=== PATIENT | female | born 1950 | race African-American/Black ===

== ENCOUNTER 2019-01-10 14:22 | Day surgery (SDC) | payer OTHER ==
[2018-12-29 14:03] VITALS: BMI 28.0
--- NOTE | 2019-01-10 14:19 | HP ---
CHIEF COMPLAINT: Right shoulder pain PCP: Dr. Tan Little HISTORY OF PRESENT ILLNESS: 68 year-old female with a PMH significant for HTN, bilateral knee arthritis, and right shoulder rotator cuff tear and biceps tendonitis s/p right shoulder arthroscopy, right rotator cuff repair, subacromial decompression, and biceps tendonesis today with Dr. Leighton Gil. Recent Travel: No PAST MEDICAL HISTORY: Hypertension Bilateral knee arthritis PAST SURGICAL HISTORY: None reported Social History: , lives in apartment Smoking: never Alcohol: no Drugs: no Family History: mother with cancer, father with cancer Allergies No Known Allergies Allergy (Verified 01/10/19 08:27) HOME MEDICATIONS: Home Medications Medication Instructions Recorded Amlodipine Besylate [Norvasc -] 5 mg PO DAILY 12/29/18 Enalapril Maleate [Vasotec -] 10 mg PO DAILY 12/29/18 Oxycodone HCl/Acetaminophen 1 each PO BID 12/29/18 [Percocet 10-325 mg Tablet] REVIEW OF SYSTEMS (post-operative) CONSTITUTIONAL: +feels a little woozy Absent: fever, chills, diaphoresis, generalized weakness, malaise, loss of appetite, weight change HEENT: Absent: rhinorrhea, nasal congestion, throat pain, throat swelling, difficulty swallowing, mouth swelling, ear pain, eye pain, visual changes CARDIOVASCULAR: Absent: chest pain, syncope, palpitations, irregular heart rate, lightheadedness , peripheral edema RESPIRATORY: Absent: cough, shortness of breath, dyspnea with exertion, orthopnea, wheezing, stridor, hemoptysis GASTROINTESTINAL: Absent: abdominal pain, abdominal distension, nausea, vomiting, diarrhea, constipation, melena, hematochezia GENITOURINARY: Absent: dysuria, frequency, urgency, hesitancy, hematuria, flank pain, genital pain MUSCULOSKELETAL: +right hand numbness Absent: myalgia, arthralgia, joint swelling, back pain, neck pain SKIN: Absent: rash, itching, pallor HEMATOLOGIC/IMMUNOLOGIC: Absent: easy bleeding, easy bruising, lymphadenopathy, frequent infections ENDOCRINE: Absent: unexplained weight gain, unexplained weight loss, heat intolerance, cold intolerance NEUROLOGIC: Absent: headache, focal weakness or paresthesias, dizziness, unsteady gait, seizure, mental status changes, bladder or bowel incontinence PSYCHIATRIC: Absent: anxiety, depression, suicidal or homicidal ideation, hallucinations. PHYSICAL EXAMINATION Vital Signs - 24 hr 07/15/19 07/15/19 08:28 08:43 Temperature 97.6 F Pulse Rate 58 L Respiratory 16 Rate Blood Pressure 140/95 O2 Sat by Pulse 98 Oximetry (%) GENERAL: Awake, alert, and fully oriented, in no acute distress. HEAD: Normal with no signs of trauma. LUNGS: Breath sounds equal, clear to auscultation bilaterally. No wheezes, and no crackles. No accessory muscle use. HEART: Regular rate and rhythm, S1 and S2 ABDOMEN: Soft, nontender, not distended, normoactive bowel sounds MUSCULOSKELETAL: Normal range of motion at all joints. No bony deformities or tenderness. No CVA tenderness. UPPER EXTREMITIES: 2+ pulses, warm, well-perfused. No cyanosis. No clubbing. No peripheral edema. RIGHT ARM: in immobilizer; surgical dressing on right shoulder c/d/i, surgical wound not visualized; 2+ radial pulse, fingers are warm-well perfused, 0/5 motor /sensory right hand LOWER EXTREMITIES: 2+ pulses, warm, well-perfused. No calf tenderness. No peripheral edema. NEUROLOGICAL: Cranial nerves II-XII intact. Normal speech. ASSESSMENT/PLAN 68 year-old female with a PMH significant for HTN, now s/p right shoulder arthroscopy, right rotator cuff repair, subacromial decompression, and biceps tendonesis. Right shoulder arthroscopy, right rotator cuff repair, subacromial decompression , and biceps tendonesis --POD #0 --perioperative antibiotics per surgery --pain management per surgery: oxycodone PRN --Zofran PRN for nausea --incentive spirometry Hypertension --normotensive post-op, hold anti-hypertensives tonight --start home amlodipine and enalapril in am with hold parameters FEN Fluids: PO intake adequate Electrolytes: replete as indicated Nutrition: regular diet DVT prophylaxis: OOB, ambulation, SCDs; start ASA 325mg daily tomorrow Dispo: 23 hour stay. Full code. Visit type - Emergency Visit Emergency Visit: No - New Patient This patient is new to me today: Yes Date on this admission: 01/10/19 - Critical Care Critical Care patient: No
[~2019-01-10 14:22] MED LIST: BUPIVACAINE HCL/PF 0.25% (2.5MG/ML) 10 ML VIAL IJ ONE; BUPIVACAINE HCL/PF 2.5 MG/ML - 30 ML VIAL IJ ONE; DEXAMETHASONE SOD PHOSPHATE 4 MG/1 ML VIAL ONE; KETOROLAC TROMETHAMINE 30 MG/1 ML VIAL ONE; MIDAZOLAM HCL 2 MG/2 ML SINGLE DOSE VIAL ONE; ONDANSETRON 4 MG/2 ML VIAL IVPUSH PRN; ONDANSETRON 4 MG/2 ML VIAL ONE; PROMETHAZINE HCL 25 MG/1 ML VIAL IVPUSH PRN; PROPOFOL 20 ML ONE; ROPIVACAINE HCL 0.5% 30ML VIAL ONE; ceFAZolin SODIUM 1 GM VIAL ONE; oxyCODONE HCL 5 MG TABLET PO PRN
--- NOTE | 2019-01-10 14:54 | OPR ---
Date of Procedure: 01/10/2019 Procedure: Right Shoulder- 1. Diagnostic arthroscopy. 2. Arthroscopic limited debridement of glenohumeral joint (03544). 3. Arthroscopic subacromial decompression (65676). 4. Arthroscopic rotator cuff repair: Subscapularis, Supraspinatus, Infraspinatus (13594). 5. Arthroscopic-assisted biceps tenodesis-subpectoral (24385). Preoperative Diagnoses: 1. Rotator cuff tear. 2. Biceps tendon degeneration. 3. Glenohumeral synovitis. 4. Glenohumeral arthritis. Postoperative Diagnoses: 1. Rotator cuff tear-Subscapularis, Supraspinatus, Infraspinatus. 2. Biceps tendon degeneration and tear. 3. Labral degeneration and fraying; SLAP tear. 4. Chondromalacia of the glenohumeral joint. 5. Glenohumeral synovitis. 6. Subacromial bursitis and adhesions. Surgeon: Leighton Gil DO Assistants: Ayden Lopez DO Anesthesia: General anesthesia, IV regional with interscalene nerve block Estimated Blood Loss: Minimal Drains: None Total IV Fluids: Per anesthesia record Specimens: None Implants: Nolen [employer] Nephew- (2) 5.5mm Healicoil [place] (x2), double loaded with UltraTape and Suture; (1) 4.5mm FootPrint [place], (1) 5.5mm FootPrint [place], (1 ) 1.9 SutureFix [place], double loaded with suture Complications: None Disposition: PACU Condition: Hemodynamically stable Indications: Avery Moreno presented to us with chronic right shoulder pain that failed conservative measures, including oral anti-inflammatory medications and 3 months of formal physical therapy. Her symptoms, signs, and imaging were consistent with the above noted diagnoses. She ultimately elected to proceed with surgical intervention after discussion of the risks, benefits, alternatives. We discussed risks including but not limited to, bleeding, pain, infection, scarring, damage to neurovascular structures, blood clots, pulmonary embolus, need for additional surgery, incomplete relief of pain, and incomplete return of function. She expressed understanding and wished to proceed. She underwent preoperative medical evaluation clearance and optimization prior to surgery. Procedure Details: She was identified in the preoperative area. The shoulder was marked as the operative site and consent was completed and confirmed. A member of the anesthesia department performed an interscalene block in the preoperative holding area. She was later transferred to the operating room and placed in supine position the operating room. General anesthesia was induced without difficulty. She was repositioned into beach chair with all bony prominences appropriately padded. The neck was in neutral alignment. A surgical time-out was performed identifying the correct patient, procedure, and site. Antibiotics were given within 1 hour prior to surgical incision. The upper extremity was prepped and draped in standard sterile fashion. Examination under anesthesia: Passive range of motion of the right shoulder showed forward elevation of 160, abduction 90, external rotation at side 60, SABER 90, SABIR 40. This was compared to her contralateral shoulder which shows forward elevation of 170, abduction 100 external rotation at side 60, SABER 90, SABIR 40, and internal rotation to her mid thoracic spine. Diagnostic arthroscopy: We began the procedure with the standard posterolateral portal, entered the glenohumeral joint, and an anterior portal was made within the rotator cuff interval under direct visualization with the assistance of a spinal needle. A probe was used to assist with diagnostic arthroscopy and we visualized from both posteriorly and anteriorly. Evaluation of the glenohumeral joint showed mild to moderate synovitis anteriorly and superiorly. The superior labrum had a degenerative tear that was debrided back to a stable base. The anterior labrum was probed and found to be intact. The posterior labrum was probed and found to be intact. There were no loose bodies in the inferior pouch. There was no HAGL lesion. The biceps tendon showed hyperemia. The rotator cuff interval was normal. The axillary recess was empty. The subscapularis was torn from the lesser tuberosity and there was a positive comma sign. The supraspinatus and infraspinatus were found to be torn from the greater tuberosity. The articular surface of the teres minor tendons were intact. The glenoid and humeral head degeneration with areas of grade III and IV chondromalacia. Evaluation of the subacromial space showed moderate bursitis and adhesions. There was a small acromial spur anteriorly. There was fraying of the CA ligament. The AC joint was intact. The rotator cuff was found to be torn from the tuberosity. Arthroscopic limited debridement of the glenohumeral joint: We used a combination of the arthroscopic motorized shaver and radiofrequency device to perform a limited debridement inside the glenohumeral joint. The hyperemia, erythema, and synovitis of the joint and joint capsule was focally debrided. Synovitic fronds were thermally ablated. Chondral degeneration was debrided to a stable edge. Labral fraying and degeneration was also resected and debrided to a stable edge. A biceps tenotomy was performed and the biceps tendon was allowed to retract into the groove for later tenodesis. Arthroscopic-assisted biceps tenodesis: We made a 2 cm incision along Patricia's lines in the axillary fold. Sharp dissection was carried out down to the level of the pectoralis major. The plane between the pectoralis major and the short head of biceps tendon was developed bluntly down to the level of the humeral bone, where we identified the long head of biceps tendon and delivered it retrograde out of the wound. The underlying soft tissue was resected and the bone was frayed with a 1/4-inch osteotome. We then selected a 1.9 SutureFix anchor and placed the anchor high within the bicipital groove underneath the pectoralis major tendon. The sutures were then passed just proximal to the musculotendinous junction of the long head of biceps in an alternating simple versus lasso loop configuration. Tying these sutures down tenodesed the tendon onto the underlying frayed humeral bone. We used an arthroscopic knot pusher to get excellent knot fixation, and then arthroscopic rotary shear cutter to cut the remaining length of the suture. The remaining length of the biceps tendon was resected. We confirmed our arthroscopic knots and position of the biceps tendon underneath the pectoralis major with the arthroscope. We thoroughly irrigated the wound. Arthroscopic subacromial decompression: The subacromial space was entered from posteriorly. Separate anterior-lateral portal and posterior-lateral portal were made for additional instrumentation and visualization. We then visualized the rotator cuff pattern as noted above, and performed our subacromial decompression in a systematic fashion from anterior to posterior and from lateral to medial, removing the bursal tissue carefully. This was done with a radiofrequency device and motorized shaver. The undersurface of the acromion was skeletonized and gently debrided to a flat smooth undersurface. There was a small anterior-inferior spur that was resected with a motorized bur. Arthroscopic rotator cuff repair: We decided to begin our rotator cuff repair with the subscapularis. We debrided the remnant tissue over the bicipital groove and superior portion of the lesser tuberosity. We debrided it with a motorized bur to slightly decorticate it. We used ultratape and a single 4.5 mm Nolen and Nephew PEEK helicoil anchor for repair of the superior subscapularis. The sutures were passed through the superolateral tendon edge in a horizontal mattress fashion. This achieved good fixation of the superior subscapularis back into the lesser tuberosity insertion. We turned our attention to rotator cuff repair of the supraspinatus and infraspinatus. We debrided the remnant tissue over the bicipital groove and greater tuberosity and debrided frayed tissue from the rotator cuff tendon edge. We debrided the greater tuberosity with a motorized bur to slightly decorticate it, preparing a bony bed to receive the rotator cuff tendon. Evaluation of the tear showed an reverse L shaped tear. We used two 5.5 mm Nolen and Nephew PEEK helicoil anchors for repair of the rotator cuff and they were placed just lateral to the articular margin, one anteriorly and one posteriorly. These had good fixation within the bone. The sutures from each anchor were then passed through the supraspinatus and infraspinatus with the tissue-piercing Firstpass. Sutures were then shuttled appropriately through the cannulas and arthroscopic knots were tied with a knot pusher. Two ultratape sutures and two standard sutures from each medial anchor knots were passed through the lateral row Footprint PEEK anchor and this was impacted into the lateral aspect of the greater tuberosity, one anteriorly and one posteriorly. This achieved good fixation of the rotator cuff into the greater tuberosity with good compression of the rotator cuff into the the tuberosity footprint from medial to lateral. We promoted some localized bone bleeding and marrow elements with an awl in the lateral aspect of the greater tuberosity. We thoroughly irrigated the subacromial space and we removed the arthroscopic equipment. Wound closure: The arthroscopic portal incisions were closed with 3-0 Monocryl subcuticular stitch with Steri strips. The axillary incision was thoroughly irrigated and closed with 2-0 Vicryl, 3-0 Monocryl subcuticular stitch, and Dermabond skin glue. The shoulder was sterilely dressed and the arm was placed in a shoulder immobilizer. Post-operative Details: I spoke with the family regarding the operation after surgery. Postoperative rehabilitation: Arthroscopic rotator cuff repair protocol. The patient will remain in a shoulder immobilizer for 6 weeks. Early passive range of motion okay with no limits and advance as tolerated; no pendulums. No strengthening for at least 5 months. Attestation for teaching assistant: Dr. Ayden Lopez DO acted as the teaching assistant. There was no qualified resident or physician bilingual office assistant available to do so.
[2019-01-11 06:13] VITALS: BP 141/73; PULSE 61; TEMP 98
--- NOTE | 2019-01-11 07:30 | PN ---
Progress Note (short form) - Note Progress Note: ORTHOPEDIC SURGERY PROGRESS NOTE Department of Orthopedic Surgery SUBJECTIVE No acute events overnight. No complaints currently. Denies chest pain, shortness of breath, or calf pain. No nausea or vomiting. Tolerating oral intake. Pain controlled. PHYSICAL EXAMINATION General: Alert, oriented, cooperative and no distress. Upper Extremity: Dressing/shoulder immobilizer intact; No drainage. Muscle mass equal and symmetric to contralateral side. No atrophy noted. No significant swelling. No tenderness to palpation. M/R/U/MSK/AX motor intact; SILT distally; 2+ radial pulses; Cap refill brisk. DVT Exam: No evidence of DVT seen on physical exam; No cords or calf tenderness ; No significant calf/ankle edema. Intake & Output 01/09/19 01/10/19 01/11/19 23:59 23:59 23:59 Intake Total 1450 Output Total 400 Balance 1050 Intake: IV 1050 Oral 400 Output: Urine 400 Void 400 Other: Voiding Method Toilet Toilet # Unmeasured Voids Void 2 Weight 179 lb Height 5 ft 7 in Body Mass Index (BMI) 28.0 Weight Measurement Method Standing Scale Active Medications Generic Name Dose Route Start Last Admin Trade Name Freq PRN Reason Stop Dose Admin Amlodipine Besylate 5 mg 01/11/19 10:00 Norvasc - PO DAILY [facility] Aspirin 325 mg 01/11/19 10:00 Ecotrin - PO DAILY [facility] Enalapril Maleate 10 mg 01/11/19 10:00 Vasotec - PO DAILY [facility] Fentanyl 50 mcg 01/10/19 14:19 Sublimaze Injection - IVPUSH [id number] PRN PAIN-PACU ORDER X 4 DOSES ONLY Ondansetron HCl 4 mg 01/10/19 14:19 Zofran Injection IVPUSH Q6H PRN NAUSEA AND/OR VOMITING Oxycodone HCl 5 mg 01/10/19 14:19 Roxicodone - PO Q4H PRN PAIN LEVEL 1-5 Oxycodone HCl 10 mg 01/10/19 14:19 Roxicodone - PO Q4H PRN PAIN LEVEL 6-10 Promethazine HCl 12.5 mg 01/10/19 14:19 Phenergan Injection - IVPUSH Q6H PRN NAUSEA-FOR RESCUE AFTER 15 MIN Vital Signs (last) Temp Pulse Resp BP Pulse Ox 98.0 F 61 19 141/73 98 01/11/19 06:00 01/11/19 06:00 01/11/19 06:00 01/11/19 06:00 01/11/19 06:00 ASSESSMENT AND PLAN Avery Moreno is a 68 year old female status post right shoulder arthroscopy rotator cuff repair and biceps tenodesis. POD#1. - Pain control: Transition to oral pain medications - DVT prophylaxis - Ice/Elevation - Keep Shoulder Immobilizer on at all times. No shoulder range of motion. NWB RUE. - Elevate HOB, encourage oral intake - Appreciate medical management (Nutrition optimization, decubitus precautions heel/sacrum) - Dispo planning: discharge medications sent to hospital pharmacy
--- NOTE | 2019-01-11 08:56 | DS ---
Physical Exam: SUBJECTIVE: Patient seen and examined OBJECTIVE: Vital Signs Period Temp Pulse Resp BP Sys/Elliott Pulse Ox Last 24 Hr 97.4 F-98.6 F 44-69 10-19 123-147/62-85 96-100 PHYSICAL EXAM GENERAL: The patient is awake, alert, and fully oriented, in no acute distress. HEAD: Normal with no signs of trauma. EYES: PERRL, extraocular movements intact, sclera anicteric, conjunctiva clear. ENT: Ears normal, nares patent, oropharynx clear without exudates, moist mucous membranes. NECK: Trachea midline, full range of motion, supple. LUNGS: Breath sounds equal, clear to auscultation bilaterally, no wheezes, no crackles, no accessory muscle use. HEART: Regular rate and rhythm, S1, S2 without murmur, rub or gallop. ABDOMEN: Soft, nontender, nondistended, normoactive bowel sounds, no guarding, no rebound, no hepatosplenomegaly, no masses. EXTREMITIES: 2+ pulses, warm, well-perfused, no edema. NEUROLOGICAL: Cranial nerves II through XII grossly intact. Normal speech, gait not observed. PSYCH: Normal mood, normal affect. SKIN: Warm, dry, normal turgor, no rashes or lesions noted. LABS: None HOSPITAL COURSE: Date of Admission:01/10/19 Date of Discharge: 01/11/19 Pre Hospital Course: 68 year-old female with a PMH significant for HTN, bilateral knee arthritis, and right shoulder rotator cuff tear and biceps tendonitis s/p right shoulder arthroscopy, right rotator cuff repair, subacromial decompression, and biceps tendonesis today with Dr. Leighton Gil Subsequent Hospital Course: Right shoulder arthroscopy, right rotator cuff repair, subacromial decompression , and biceps tendonesis on 01/10 --Discharged on post op day 1 --perioperative antibiotics complete --pain well managed on PO meds Hypertension --normotensive post-op, anti-hypertensives well held overnight --home amlodipine and enalapril restarted on date of discharge Minutes to complete discharge: 35 Discharge Summary Reason For Visit: RIGHT SHOULDER ROTATOR CUFF TEAR/BICEPS TENDINITIS Condition: Improved - Instructions Diet, Activity, Other Instructions: You have been provided a discharge packet from Dr. Gil. It is important that you follow up with him for your scheduled appointment. Referrals: Leighton Gil DO [Staff Physician] - Disposition: HOME - Home Medications Comprehensive Discharge Medication List: Ambulatory Orders Amlodipine Besylate [Norvasc -] 5 mg PO DAILY 12/29/18 Enalapril Maleate [Vasotec -] 10 mg PO DAILY 12/29/18 Oxycodone HCl/Acetaminophen [Percocet 10-325 mg Tablet] 1 each PO BID 12/29/18 This patient is new to me today: Yes Date on this admission: 01/11/19 Emergency Visit: No Critical Care patient: No - Discharge Referral Referred to [facility] No
[2019-01-11] MEDS ORDERED: ASPIRIN 325 MG ENTERIC COATED TABLET (FP) PO SCH (10:00)
[2019-01-11] MEDS ORDERED: amLODIPine BESYLATE 5 MG TABLET (FP) PO SCH ×2 (10:00)
[2019-01-11] MEDS ORDERED: ENALAPRIL MALEATE 10 MG TABLET (FP) PO SCH ×2 (10:00)
== END 2019-01-11 11:00 | disposition home or self-care (01) ==
LOC: FM/S 14:22 → SUATTDRO 14:22 → FASUSAT 14:22
PROVIDERS: ATTEND Nurse Practitioner Acute Care
PROC: 0RBJ4ZZ Excision of Right Shoulder Joint, Percutaneous Endoscopic Approach (ICD-10-PCS; 2019-01-10)
PROC: 0LQ14ZZ Repair Right Shoulder Tendon, Percutaneous Endoscopic Approach (ICD-10-PCS; principal; 2019-01-10 10:00)
PROC: 0LS14ZZ Reposition Right Shoulder Tendon, Percutaneous Endoscopic Approach (ICD-10-PCS; 2019-01-10 10:00)
PROC: 0RNJ4ZZ Release Right Shoulder Joint, Percutaneous Endoscopic Approach (ICD-10-PCS; 2019-01-10 10:00)
DX: M75.121 Complete rotator cuff tear or rupture of right shoulder, not specified as traumatic (principal); M66.821 Spontaneous rupture of other tendons, right upper arm; M65.811 Other synovitis and tenosynovitis, right shoulder; M75.51 Bursitis of right shoulder; S43.431A Superior glenoid labrum lesion of right shoulder, initial encounter; X58.XXXA Exposure to other specified factors, initial encounter; Y93.9 Activity, unspecified; Y92.9 Unspecified place or not applicable; M94.211 Chondromalacia, right shoulder; M75.01 Adhesive capsulitis of right shoulder
CPT/HCPCS: 94760

== ENCOUNTER 2021-03-03 13:54 | Emergency (ER) | payer OTHER ==
[2021-03-03 14:11] VITALS: BP 112/72; PULSE 90; TEMP 99; BMI 19.5
[2021-03-03 15:27] LABS: BASO % 0.4 % (0-2.0); HEMATOCRIT 37.1 % (32.4-45.2); HEMOGLOBIN 12.5 GM/dL (10.7-15.3); LYMPH % 9.8 % (8-40); MCH 31.6 pg (25.7-33.7); MCHC 33.6 g/dl (32.0-36.0); MEAN CELL VOLUME 94.1 fl (80-96); MEAN PLT VOLUME 7.5 fl (7.5-11.1); MONO % 8.9 % (3.8-10.2); NEUT % 80.9 % (42.8-82.8); PLATELET COUNT 296 10^3/uL (134-434); RBC 3.94 M/mm3 (3.60-5.2); RDW 13.3 % (11.6-15.6); WHITE BLOOD COUNT 12.3 K/mm3 (4.0-10.0)
[2021-03-03 15:43] LABS: CALCIUM 8.6 mg/dL (8.5-10.1)
[2021-03-03 15:44] LABS: ALBUMIN 3.2 g/dl (3.4-5.0); BLOOD UREA NITROGEN 16.5 mg/dL (7-18)
[2021-03-03 15:47] LABS: CREATININE 0.9 mg/dL (0.55-1.3)
[2021-03-03 15:49] LABS: TOT PROT 7.2 g/dl (6.4-8.2)
[2021-03-03 15:58] LABS: EPI CELLS 12 /uL (0-25.1); HYALINE CASTS 0 /uL (0-3.1); PH,URINE 5.5 (5.0-8.0); URINE APPEARANCE CLOUDY; URINE BACTERIA >9,000 /uL (0-1359); URINE BILIRUBIN NEGATIVE (NEGATIVE); URINE COLOR DK YELLOW; URINE GLUCOSE (UA) NEGATIVE (NEGATIVE); URINE KETONE TRACE (NEGATIVE); URINE LEUK ESTERASE 2+ (NEGATIVE); URINE NITRITE POSITIVE (NEGATIVE); URINE PROTEIN 2+ (NEGATIVE); URINE RBC 185 /uL (0-23.9); URINE WBC 1639 /uL (0-25.8)
== END 2021-03-03 16:29 | disposition home or self-care (01) ==
LOC: JERFT 13:54
DX: N12 Tubulo-interstitial nephritis, not specified as acute or chronic (principal)
CPT/HCPCS: 36415; 80053; 81003; 85025; 87086; 87186; 99283-25

== ENCOUNTER 2021-09-09 04:22 | Day surgery (SDC) | payer OTHER ==
[2021-09-05 16:24] VITALS: BMI 19.1
[2021-09-09] MEDS ORDERED: ACETAMINOPHEN 325 MG TABLET (FP) PO PRN (11:08)
[2021-09-09] MEDS ORDERED: IBUPROFEN 400 MG TABLET (FP) PO PRN (11:08)
[2021-09-09] MEDS ORDERED: oxyCODONE HCL 5 MG TABLET PO PRN (12:16)
[2021-09-09] MEDS ORDERED: PROMETHAZINE HCL 25 MG/1 ML VIAL IVPB PRN (12:16)
[2021-09-09] MEDS ORDERED: ONDANSETRON 4 MG/2 ML VIAL IVPUSH PRN (12:16)
[2021-09-09] MEDS ORDERED: LIDOCAINE HCL/PF 2% SDV 5ML VIAL ONE (12:20)
[2021-09-09] MEDS ORDERED: MIDAZOLAM HCL 2 MG/2 ML SINGLE DOSE VIAL ONE (12:20)
[2021-09-09] MEDS ORDERED: PROPOFOL 20 ML ONE ×2 (12:20)
[2021-09-09] MEDS ORDERED: LACTATED RINGERS SOLUTION 1,000 ML IV SCH (12:30)
[2021-09-09] MEDS ORDERED: KETOROLAC TROMETHAMINE 30 MG/1 ML VIAL ONE (13:07)
[2021-09-09 17:08] VITALS: BP 120/60; PULSE 56; TEMP 97.8
== END 2021-09-09 16:30 | disposition home or self-care (01) ==
LOC: JASU-SURG 04:22
PROVIDERS: ATTEND Obstetrics & Gynecology
PROC: 0UBC7ZX Excision of Cervix, Via Natural or Artificial Opening, Diagnostic (ICD-10-PCS; principal; 2021-09-09 12:00)
DX: N72 Inflammatory disease of cervix uteri (principal)
CPT/HCPCS: 88307-TC; 94760